=== PATIENT | female | born 1935 | race Caucasian/White ===

== ENCOUNTER 2017-08-09 08:12 | Emergency (ER) | payer MEDICARE ==
[2017-08-09 08:43] LABS: ABS Basophils 0 10^3/ul (0-0.2); ABS Eosinophils 0.2 10^3/ul (0-0.6); ABS Lymphocytes 1.2 10^3/ul (1.0-4.8); ABS Monocytes 0.5 10^3/ul (0-0.8); ABS Neutrophils 4.8 10^3/ul (1.5-7.7); ABS Nucleated RBC 0 10^3/ul; Eosinophil % 2.9 % (0-6); Hematocrit 40 % (35-47); Hemoglobin 13.2 g/dl (12.0-16.0); Lymphocyte % 17.7 % (25-47); Mean Corpuscular HGB Conc 33 g/dl (31-36); Mean Corpuscular Hemoglobin 28 pg (27-31); Mean Corpuscular Volume 85 fL (80-97); Mean Platelet Volume 8 um3 (7.4-10.4); Nucleated Red Blood Cells % 0.1; Platelet Count 213 10^3/ul (150-450); Red Blood Count 4.69 10^6/ul (4.0-5.4); Red Cell Distribution Width 14 % (10.5-15); White Blood Count 6.8 10^3/ul (3.5-10.8)
--- NOTE | 2017-08-09 08:52 | RAD ---
INDICATION: Short of breath COMPARISON: October 04, 2015 TECHNIQUE: PA and lateral dual-energy views were obtained. FINDINGS: Bones/Soft Tissues: There are no acute bony findings. Cardiomediastinal: The cardiomediastinal silhouette is normal. Lungs: There are no infiltrates. Pleura: There are no pleural effusions. Other: None IMPRESSION: NO ACTIVE DISEASE.
[2017-08-09 08:58] LABS: EGFR Non-African American 64.4 (>60)
[2017-08-09 10:02] LABS: Urine Appearance Cloudy; Urine Blood 2+ (Negative); Urine Color Yellow; Urine Ketones Negative (Negative); Urine Protein Negative (Negative); Urine Specific Gravity 1.014 (1.010-1.030); Urine Urobilinogen Negative (Negative)
[2017-08-09] MEDS ORDERED: ceFUROXime TAB(*) 250 MG PO ONE (10:21)
[2017-08-09 11:56] VITALS: BP 162/90
--- NOTE | 2017-08-10 09:30 | ED ---
Rosa Dominguez Edward, scribed for Elijah Ibrahim MD on 08/09/17 at 0815 . Shortness of Breath - HPI Summary HPI Summary: 82 y/o female MARYBETH c/o SOB since 18:00 last night. Associated sx: productive cough, rhinorrhea. PMHx anxiety. Pt is not on O2 at home. Denies fevers. Pt is on Warforin. Sx not aggravated or alleviated by anything. - History of Current Complaint Hx Obtained From: Patient Onset/Duration: Lasting Hours Timing: Constant Dyspnea At: Rest Aggrevating Factors: Nothing Alleviating Factors: Nothing Associated Signs & Symptoms: Cough (Productive) - Allergy/Home Medications Allergies/Adverse Reactions: Allergies Allergy/AdvReac Type Severity Reaction Status Date / Time No Known Allergies Allergy Verified 11/27/15 12:11 PMH/Surg Hx/FS Hx/Imm Hx Previously Healthy: No Endocrine/Hematology History: Denies: Hx Diabetes Cardiovascular History: Reports: Hx Hypercholesterolemia Denies: Hx Congestive Heart Failure, Other Cardiovascular Problems/Disorders Respiratory History: Reports: Hx Pulmonary Embolism Denies: Hx Chronic Obstructive Pulmonary Disease (COPD), Other Respiratory Problems/Disorders Sensory History: Reports: Hx Cataracts Opthamlomology History: Reports: Hx Cataracts - Family History Known Family History: Positive: None - Social History Alcohol Use: None Hx Substance Use: No Substance Use Type: Reports: None Hx Tobacco Use: No Smoking Status (MU): Never Smoked Tobacco Review of Systems Constitutional: Negative Negative: Fever Eyes: Negative ENT: Negative Cardiovascular: Negative Positive: Shortness Of Breath, Cough Gastrointestinal: Negative Genitourinary: Negative Musculoskeletal: Negative Skin: Negative Neurological: Negative Psychological: Normal All Other Systems Reviewed And Are Negative: Yes Physical Exam - Summary Physical Exam Summary: VITAL SIGNS: Reviewed. GENERAL: Patient is a well-developed and nourished female who is lying comfortable in the stretcher. Patient is not in any acute respiratory distress. Pt is comfortable on room air. HEAD AND FACE: No signs of trauma. No ecchymosis, hematomas or skull depressions. No sinus tenderness. Patient has a runny nose with clear discharge. EYES: PERRLA, EOMI x 2, No injected conjunctiva, no nystagmus. EARS: Hearing grossly intact. Ear canals and tympanic membranes are within normal limits. MOUTH: Oropharynx within normal limits. NECK: Supple, trachea is midline, no adenopathy, no JVD, no carotid bruit, no c- spine tenderness, neck with full ROM. CHEST: Symmetric, no tenderness at palpation LUNGS: Clear to auscultation bilaterally. No wheezing or crackles. CVS: Regular rate and rhythm, S1 and S2 present, no murmurs or gallops appreciated. ABDOMEN: Soft, non-tender. No signs of distention. No rebound no guarding, and no masses palpated. Bowel sounds are normal. EXTREMITIES: FROM in all major joints, no edema, no cyanosis or clubbing. NEURO: Alert and oriented x 3. No acute neurological deficits. Speech is normal and follows commands. SKIN: Dry and warm Triage Information Reviewed: Yes Vital Signs Reviewed: Yes Diagnostics - Laboratory Result Diagrams: 08/09/17 08:29 08/09/17 08:29 Lab Statement: Any lab studies that have been ordered have been reviewed, and results considered in the medical decision making process. - Radiology CXR Xray Interpretation: No Acute Changes Radiology Interpretation Completed By: Radiologist - ED PHYSICIAN REVIEWS AND AGREES - EKG 1 EKG Interpretation: SR @ [address] elevations. Normal axis. Course/Dx - Course Assessment/Plan: 82 y/o female BIBA c/o SOB since 18:00 last night. Associated sx: productive cough, rhinorrhea. PMHx anxiety. Pt is not on O2 at home. Denies fevers. Pt is on Warforin. CXR SHOWS NAD. EKG - SR @ [address] elevations. Normal axis. Test results are without significant abnormalities, UA (+) UTI. Influenza A & B negative. D-Dimer <200. In the ED course the pt was given IV fluids Cefuroxime for the UTI, since these meds do not interfere with Coumadin. The pt came c/o SOB; however the CXR shows no PNA, the pt is saturating 98% on room air and the D dimer is <200, so I have no suspicion of PE. Since the pt is feeling better, ambulating, tolerating PO, the pt will be d/c home with f/u PCP. The pt is hemodynamically stable, A&Ox3. - Diagnoses Provider Diagnoses: UTI (urinary tract infection), Dyspnea, Anxiety Discharge - Discharge Plan Condition: Stable Disposition: HOME Prescriptions: ceFUROXime TAB(*) [Ceftin TAB 250 MG(*)] 250 mg PO BID #14 tab Patient Education Materials: Urinary Tract Infection in Women (ED), Dyspnea (ED ), Anxiety (ED) Referrals: Mike Mc MD [Primary Care Provider] - 4 Days (PLEASE F/U IN 3-5 DAYS) The documentation as recorded by the Rosa brady Edward accurately reflects the service I personally performed and the decisions made by Patrice starr Walter, MD.
--- NOTE | 2017-08-11 09:05 | PN ---
Progress Note - Progress Note Date of Service: 08/09/17 Note: patient diagnosed and treated for UTI. placed on ceftin at discharge. had >100,000 of e. coli on preliminary results. will wait for final culture results to determine susceptibility. no further action required at this time.
== END 2017-08-09 11:55 | disposition home or self-care (01) ==
LOC: ED 08:12
DX: N39.0 Urinary tract infection, site not specified (principal); B96.20 Unspecified Escherichia coli [E. coli] as the cause of diseases classified elsewhere; R06.02 Shortness of breath; F41.9 Anxiety disorder, unspecified; R05 Cough; E78.00 Pure hypercholesterolemia, unspecified; Z86.711 Personal history of pulmonary embolism; Z79.01 Long term (current) use of anticoagulants
CPT/HCPCS: 36415; 71046; 80053; 81003; 81015; 82550; 82553; 83605; 83880; 84484; 85025; 85379; 86140; 87040; 87077; 87086; 87186; 87502; 93005; 99282

== ENCOUNTER 2018-10-09 14:09 | Observation (INO) | payer MEDICARE ==
[2018-10-09] MEDS ORDERED: NS 0.9% 1000 ML** 1,000 ML IV ONE (14:44)
--- NOTE | 2018-10-09 14:49 | ED ---
Lower Extremity - HPI Summary HPI Summary: This patient is a 83 year old F brought in by ambulance with a chief complaint of bilateral knee pain due to fall since 03:00. The patient rates the pain 3/10 in severity. Patient reports difficulty ambulating. Patient denies pelvic pain, cardiac pain, or head injury. The patient got up to go to the bathroom, became dizzy, and fell. She was unable to get up and waited on the ground. On the ground, she experienced CP for 2 minutes. She is usually able to ambulate with a walker, but tried to get to the bathroom without it since it was the middle of the night. She sees her doctor once a month. SHX lives alone in an apartment. No SHx EtOH use, tobacco use. RX Warfarin. Vitals in the room: HR 93 bpm, BP 176/97. - History of Current Complaint Chief Complaint: EDFall Stated Complaint: FALL PER EMS Time Seen by Provider: 10/09/18 14:25 Hx Obtained From: Patient Mechanism Of Injury: Fall From A Standing Position Onset/Duration: Hours Severity Currently: Mild Pain Intensity: 3 Pain Scale Used: 0-10 Numeric Associated Signs And Symptoms: Positive: Knee Pain Aggravating Factor(s): Standing, Ambulation - Allergies/Home Medications Allergies/Adverse Reactions: Allergies Allergy/AdvReac Type Severity Reaction Status Date / Time No Known Allergies Allergy Verified 10/09/18 14:14 Home Medications: Home Medications Warfarin Sodium 9 mg PO DAILY 10/09/18 [History Confirmed 10/09/18] PMH/Surg Hx/FS Hx/Imm Hx Endocrine/Hematology History: Denies: Hx Diabetes Cardiovascular History: Reports: Hx Hypercholesterolemia Denies: Hx Congestive Heart Failure, Other Cardiovascular Problems/Disorders Respiratory History: Reports: Hx Pulmonary Embolism Denies: Hx Chronic Obstructive Pulmonary Disease (COPD), Other Respiratory Problems/Disorders Sensory History: Reports: Hx Cataracts Opthamlomology History: Reports: Hx Cataracts - Immunization History Date of Influenza Vaccine: no Infectious Disease History: No Infectious Disease History: Denies: Traveled Outside the [place] in Last 30 Days - Family History Known Family History: Positive: Other - PE - Social History Lives: Alone Alcohol Use: None Hx Substance Use: No Substance Use Type: Reports: None Hx Tobacco Use: No Smoking Status (MU): Never Smoked Tobacco Review of Systems Cardiovascular: Negative Positive: Chest Pain - resolved Positive: Myalgia - knee pain, Decreased ROM - difficulty ambulating. Negative : Other - pelvic pain, head injury Neurological: Other - dizzy All Other Systems Reviewed And Are Negative: Yes Physical Exam - Summary Physical Exam Summary: Appearance: Well appearing, Skin: warm, dry, reflects adequate perfusion Head/face: normal Eyes: EOMI, ERIC ENT: normal Neck: supple, non-tender Respiratory: CTA, breath sounds present Cardiovascular: RRR, pulses symmetrical Abdomen: non-tender, soft Musculoskeletal: tenderness b/l knees, swelling and rom restricted b/l knees. Neuro: A&Ox3 GCS: 15 Triage Information Reviewed: Yes Vital Signs On Initial Exam: Initial Vitals Temp Pulse Resp BP Pulse Ox 99.0 F 86 22 167/99 99 10/09/18 14:10 10/09/18 14:10 10/09/18 14:10 10/09/18 14:10 10/09/18 14:10 Vital Signs Reviewed: Yes Diagnostics - Vital Signs Vital Signs Temp Pulse Resp BP Pulse Ox 10/09/18 14:24 85 18 176/97 98 10/09/18 14:17 95 30 99 10/09/18 14:10 99.0 F 86 22 167/99 99 - Laboratory Result Diagrams: 10/09/18 14:57 10/09/18 14:57 Lab Statement: Any lab studies that have been ordered have been reviewed, and results considered in the medical decision making process. - Radiology cxr Radiology Interpretation Completed By: Radiologist Summary of Radiographic Findings: No evidence for acute intrathoracic disease. ED physician has reviewed this report. Pelvic x ray Radiology Interpretation Completed By: Radiologist Summary of Radiographic Findings: No gross evidence for RIGHT hip or pelvic fracture within limits of supine AP pelvis radiograph. If there is persistent clinical concern for RIGHT hip fracture a dedicated RIGHT hip series would be suggested. ED physician has reviewed this report right knee x ray Radiology Interpretation Completed By: Radiologist Summary of Radiographic Findings: Negative for fracture. Advanced osteoarthritis. ED physician has reviewed this report. left knee x ray Radiology Interpretation Completed By: ED Physician Summary of Radiographic Findings: no fracture, pending official radiology report - CT Brain CT Interpretation Completed By: Radiologist Summary of CT Findings: Moderate involutional change and stigmata of chronic small vessel schema disease. No CT evidence for an acute intracranial process. ED physician has reviewed this report - EKG 15:49 Cardiac Rate: NL - 80 bpm EKG Rhythm: Sinus Rhythm Summary of EKG Findings: No acute changes Lower Extremity Course/Dx - Course Course Of Treatment: This patient is a 83 year old F brought in by ambulance with a chief complaint of bilateral knee pain due to fall since 03:00. The patient rates the pain 3/10 in severity. Patient reports difficulty ambulating. Patient denies pelvic pain, cardiac pain, or head injury. An EKG reveals NSR 80 bpm, no acute changes. CXR reveals, per radiologist, No evidence for acute intrathoracic disease. Brain CT reveals, per radiologist, Moderate involutional change and stigmata of chronic small vessel schema disease. No CT evidence for an acute intracranial process. Right knee x ray reveals, per radiologist, Negative for fracture. Advanced osteoarthritis. Left knee x ray reveals, per ED physician, no fracture. Pelvic x ray reveals, per radiologist, No gross evidence for RIGHT hip or pelvic fracture within limits of supine AP pelvis radiograph. If there is persistent clinical concern for RIGHT hip fracture a dedicated RIGHT hip series would be suggested. Bloodwork/UA obtained. In the ED course the patient was given IV fluids. We discussed patient care with Dr. Collins, hospitalist, and they recommended admission. - Diagnoses Differential Diagnosis/HQI/PQRI: Positive: Sprain, Other - fall/b/l knee pains/ unable to ambulate Provider Diagnoses: Fall, UTI (urinary tract infection), Bilateral knee pain, Unable to ambulate - Physician Notifications Discussed Care Of Patient With: Matheus Collins Time Discussed With Above Provider: 17:52 Instructed by Provider To: Admit As Inpatient Discharge - Sign-Out/Discharge Documenting (check all that apply): Patient Departure - admission Patient Received Moderate/Deep Sedation with Procedure: No - Discharge Plan Condition: Fair Disposition: ADMITTED TO [facility] Referrals: Mike Mc MD [Primary Care Provider] - - Billing Disposition and Condition Condition: FAIR Disposition: Admitted to [facility] - Attestation Statements Document Initiated by Scribe: Yes Documenting Scribe: Jay Garcia Provider For Whom Scribe is Documenting (Include Credential): Ej Sewell MD Scribe Attestation: Jay Dominguez, scribed for Ej Sewell MD on 10/09/18 at 1841. Scribe Documentation Reviewed: Yes Provider Attestation: The documentation as recorded by the scribe, Jay Garcia accurately reflects the service I personally performed and the decisions made by me, Ej Sewell MD Status of Scribe Document: Viewed
[2018-10-09 15:06] LABS: Hematocrit 42 % (33-41); Hemoglobin 13.6 g/dL (12.0-16.0); Mean Corpuscular HGB Conc 33 g/dL (31-36); Mean Corpuscular Hemoglobin 28 pg (27-31); Mean Corpuscular Volume 85 fL (80-97); Mean Platelet Volume 8.3 fL (7.4-10.4); Platelet Count 225 10^3/uL (150-450); Red Blood Count 4.91 10^6 /uL (3.70-4.87); Red Cell Distribution Width 14 % (10.5-15); White Blood Count 13.5 10^3/uL (3.5-10.8)
[2018-10-09 15:19] LABS: Activated Partial Thrombo Time 39.8 seconds (26.0-36.3); INR 2.76 (0.77-1.02)
[2018-10-09 15:24] LABS: Alcohol < 10 mg/dL (<10)
[2018-10-09 15:26] LABS: ALT 8 U/L (7-52); AST 21 U/L (13-39); Albumin 4.1 g/dL (3.2-5.2); Albumin/Globulin Ratio 1.6 (1-3); Alkaline Phosphatase 50 U/L (34-104); Anion Gap 9 mmol/L (2-11); Blood Urea Nitrogen 20 mg/dL (6-24); CO2 Carbon Dioxide 23 mmol/L (22-32); Calcium 9.5 mg/dL (8.6-10.3); Chloride 109 mmol/L (101-111); Creatine Kinase 215 U/L (10-223); EGFR African American 75.6 (>60); EGFR Non-African American 62.5 (>60); Globulin 2.5 g/dL (2-4); Glucose 107 mg/dL (70-100); Magnesium 1.8 mg/dL (1.9-2.7); Potassium 4.7 mmol/L (3.5-5.0); Sodium 141 mmol/L (135-145); Total Protein 6.6 g/dL (6.4-8.9)
[2018-10-09 15:30] LABS: ABS Basophils 0.1 10^3/ul (0-0.2); ABS Eosinophils 0 10^3/ul (0-0.6); ABS Lymphocytes 0.7 10^3/ul (1.0-4.8); ABS Monocytes 1.1 10^3/ul (0-0.8); ABS Neutrophils 11.6 10^3/ul (1.5-7.7); ABS Nucleated RBC 0 10^3/ul; Eosinophil % 0.1 %; Lymphocyte % 5.1 %; Nucleated Red Blood Cells % 0.1
[2018-10-09 15:38] LABS: TSH (Thyroid Stimulating Horm) 2.12 mcIU/mL (0.34-5.60)
[2018-10-09 16:56] LABS: Urine Appearance Cloudy; Urine Bacteria 2+ (Absent); Urine Bilirubin Negative (Negative); Urine Blood 2+ (Negative); Urine Color Yellow; Urine Glucose Negative (Negative); Urine Ketones 1+ (Negative); Urine Nitrite Positive (Negative); Urine Protein 1+(30 mg/dL) (Negative); Urine Red Blood Cell 1+(3-5/hpf) (Absent); Urine Specific Gravity 1.018 (1.010-1.030); Urine Squamous Epithelial Cell Present (Absent); Urine Urobilinogen Negative (Negative); Urine White Blood Cell 3+(>20/hpf) (Absent)
[2018-10-09] MEDS ORDERED: Sulfamethox/Trimethoprim DS 800/160* TAB PO ONE (17:40)
[2018-10-09] MEDS ORDERED: Acetaminophen TAB* 325 MG PO PRN (18:16)
--- NOTE | 2018-10-09 18:27 | ADMNOTE ---
Subjective Date of Service: 10/09/18 Interval History: ADMISSION HISTORY AND PHYSICAL EXAM: Allergies Allergy/AdvReac Type Severity Reaction Status Date / Time No Known Allergies Allergy Verified 10/09/18 14:14 Home Medications Medication Instructions Recorded Confirmed Type Warfarin Sodium 9 mg PO DAILY 10/09/18 10/09/18 History HPI: The patient was in her usual state of health until 3 AM when she got up to go to the BR. She fell and could not get up. She thinks she may have passed out but is not sure. Both knees and both feet hurt. She usually takes her warfarin in the AM but did not take it today. She sat in the BR for many hours before she saw there was a cord she could pull for help. She pulled the cord and the EMS came and brought her to the ED. Family History: Findings - Unremarkable Social History: Findings - Lives alone, . Never smoked. Her late smoked. No alcohol abuse. 3 children. SDM is her daughter Elysia Mckinney. Past Medical History: Findings - PE 2010, phlebitis age 37 treated with warfarin. T&A, BL cataract sx. Review of Systems - Measurements Intake and Output: Intake and Output Last 24 Hours 10/07/18 10/08/18 10/09/18 10/10/18 06:59 06:59 06:59 06:59 Weight 219 lb - Review of Systems Constitutional Symptoms: Negative: Weight Gain, Weight Loss, Weakness, Fatigue, Fever, Night Sweats, Unexplained Falls, Other Dermatology: Positive: Normal HEENT: Positive: Normal Eyes: Positive: Normal Thyroid: Positive: Normal Pulmonary: Positive: Normal Cardiology: Positive: Normal Gastroenterology: Positive: Normal Genital - Urinary: Positive: Normal Musculoskeletal: Positive: Joint Pain - see HPI Endocrinology: Positive: Normal Neurology: Positive: Normal Psychiatry: Positive: Normal Allergic/Immunologic: Negative: Hx Anaphylaxis, Hx Angioedema, Hx Environmental, Hx Seasonal, Athsma, Hx HIV, Immunocompromise, Swollen Glands LymphNodes, Other Objective Active Medications: Acetaminophen (Tylenol Tab*) 650 mg PO Q4H PRN PRN Reason: PAIN Sodium Chloride (Ns 0.9% 1000 Ml) 1,000 mls @ 100 mls/hr IV ED ONCE ONE Stop: 10/10/18 00:43 Last Admin: 10/09/18 15:15 Dose: 100 mls/hr Potassium Chloride/Dextrose (D5w 1/2 Ns Kcl 20 Meq 1000 Ml*) 1,000 mls @ 125 mls/hr IV PER RATE [facility] Ceftriaxone Sodium 1 gm/ (Sodium Chloride) 50 mls @ 200 mls/hr IVPB Q24H [facility] Nystatin (Nystatin Top Powder*) 1 applic TOPICAL TID [facility] Warfarin Sodium (Coumadin Tab(*)) 6 mg PO DAILY [facility]; Protocol Vital Signs - 8 hr 10/09/18 10/09/18 10/09/18 14:10 14:17 14:24 Temperature 99.0 F Pulse Rate 86 95 85 Respiratory 22 30 18 Rate Blood Pressure 167/99 176/97 (mmHg) O2 Sat by Pulse 99 99 98 Oximetry 10/09/18 10/09/18 10/09/18 15:00 15:55 16:00 Temperature Pulse Rate 77 87 81 Respiratory 21 28 24 Rate Blood Pressure 150/123 (mmHg) O2 Sat by Pulse 97 97 98 Oximetry 10/09/18 10/09/18 10/09/18 16:25 16:27 16:54 Temperature Pulse Rate 84 86 86 Respiratory 23 28 20 Rate Blood Pressure 168/120 165/94 165/103 (mmHg) O2 Sat by Pulse 95 97 99 Oximetry 10/09/18 17:00 Temperature Pulse Rate 93 Respiratory 24 Rate Blood Pressure (mmHg) O2 Sat by Pulse 97 Oximetry Oxygen Devices in Use Now: Nasal Cannula Appearance: Alert, partly up on ED stretche. Somewhat anxious but otherwise looks comfortable. Eyes: No Scleral Icterus Neck: NL Appearance and Movements; NL JVP, No Thyroid Enlargement, Masses Respiratory: Symmetrical Chest Expansion and Respiratory Effort, Clear to Auscultation, Clear to Percussion Cardiovascular: NL Sounds; No Murmurs; No JVD, RRR, No Edema, - Abdominal: NL Sounds; No Tenderness; No Distention, No Hepatosplenomegaly, - Extremities: No Edema, No Clubbing, Cyanosis, - - Both lower legs seem superficially tender to touch everywhere. Skin: No Nodules or Sclerosis, - - Both inguinal areas excoriated. Neurological: Alert and Oriented x 3, NL Sensation Result Diagrams: 10/09/18 14:57 10/09/18 14:57 Assess/Plan/Problems-Billing Assessment: - Patient Problems (1) Syncope Current Visit: Yes Status: Acute Code(s): R55 - SYNCOPE AND COLLAPSE SNOMED Code(s): 260400244 Comment: echo, US carotids ordered, orthostatic signs, tele. (2) UTI (urinary tract infection) Current Visit: Yes Status: Acute Comment: Start ceftr 10/09 PM, check urine C &S. (3) Hx pulmonary embolism Current Visit: Yes Status: Acute Code(s): Z86.711 - PERSONAL HISTORY OF PULMONARY EMBOLISM SNOMED Code(s): 353190662 Comment: INT 2.67 in ED. Start warfarin 5 mg daily 5 PM on 10/09, re-check INR in 2 days. Jaimee'ritika dispenses 45 6 mg warfarin tablets per month, but on repeat questioning patient firmly states she takes 1 warfarin tablet daily, NOT 1 1/2, usually has 8 or so tablets left over whenshe is due for a refill. (4) Lower extremity pain Current Visit: Yes Status: Acute Comment: Suspect soft tissure injury, some somatization from anxiety. APAP PRN ordered. PT ordered.
[2018-10-09] MEDS ORDERED: Warfarin TAB(*) 6 MG PO SCH (18:30)
[2018-10-09] MEDS ORDERED: cefTRIAXone(*) 1 GM ADVAN/BAG ONE (18:49)
[2018-10-09] MEDS ORDERED: cefTRIAXone(*) 1 GM in NS 0.9% 50 ML* 50 ML IVPB SCH (19:00)
[2018-10-09] MEDS: D5W 1/2 NS KCl 20 Meq 1000 ML* 1,000 ML IV SCH (20:40)
[2018-10-09] MEDS: Warfarin TAB(*) 5 MG PO SCH (20:41)
[2018-10-10] MEDS: Nystatin TOP POWDER* 15 GM BTL TOPICAL SCH ×4 (00:04→22:03)
[2018-10-10] MEDS: traMADol TAB* 50 MG PO PRN (06:11)
[2018-10-10] MEDS: D5W 1/2 NS KCl 20 Meq 1000 ML* 1,000 ML IV SCH ×2 (07:12→14:56)
--- NOTE | 2018-10-10 14:31 | PN ---
Subjective Date of Service: 10/10/18 Interval History: No more extremity pain. No new c/o. Family History: Findings - Unremarkable Social History: Findings - Lives alone, . Never smoked. Her late smoked. No alcohol abuse. 3 children. SDM is her daughter Elysia Mckinney. Past Medical History: Findings - PE 2010, phlebitis age 37 treated with warfarin. T&A, BL cataract sx. Objective Active Medications: Acetaminophen (Tylenol Tab*) 650 mg PO Q4H PRN PRN Reason: PAIN Last Admin: 10/10/18 04:33 Dose: 650 mg Potassium Chloride/Dextrose (D5w 1/2 Ns Kcl 20 Meq 1000 Ml*) 1,000 mls @ 125 mls/hr IV PER RATE [facility] Last Admin: 10/10/18 07:12 Dose: 125 mls/hr Ceftriaxone Sodium 1 gm/ (Sodium Chloride) 50 mls @ 200 mls/hr IVPB 1830 [facility] Nystatin (Nystatin Top Powder*) 1 applic TOPICAL TID [facility] Last Admin: 10/10/18 13:07 Dose: 1 applic Tramadol HCl (Ultram*) 50 mg PO Q6H PRN PRN Reason: PAIN Last Admin: 10/10/18 06:11 Dose: 50 mg Warfarin Sodium (Coumadin Tab(*)) 5 mg PO DAILY@1700 [facility]; Protocol Last Admin: 10/09/18 20:41 Dose: 5 mg Vital Signs - 8 hr 10/10/18 10/10/18 10/10/18 07:44 08:00 11:40 Temperature 97.3 F 98.7 F Pulse Rate 75 58 Respiratory 19 16 18 Rate Blood Pressure 130/68 128/44 (mmHg) O2 Sat by Pulse 97 99 Oximetry 10/10/18 11:41 Temperature Pulse Rate Respiratory 16 Rate Blood Pressure (mmHg) O2 Sat by Pulse Oximetry Oxygen Devices in Use Now: None Appearance: Alert, partly up in bed. In good spirits. Looks comfortable. Extremities: No Edema, No Clubbing, Cyanosis, - Skin: No Rash or Ulcers, No Nodules or Sclerosis, - Neurological: Alert and Oriented x 3, NL Sensation Result Diagrams: 10/09/18 14:57 10/09/18 14:57 Microbiology and Other Data: Microbiology 10/09/18 16:45 Urine Culture - Preliminary Urine Escherichia Coli Assess/Plan/Problems-Billing Assessment: - Patient Problems (1) Syncope Current Visit: Yes Status: Acute Code(s): R55 - SYNCOPE AND COLLAPSE SNOMED Code(s): 806904256 Comment: Echo, US carotids ordered. Orthostatic signs were normal. Continue tele. (2) UTI (urinary tract infection) Current Visit: Yes Status: Acute Comment: Start ceftr 10/09 PM, Urine growing >100,000 E. coli, sens pending. Plan on discharge on cefuroxime 500 mg bid x 5 days unless resistance seen on C&S. (3) Hx pulmonary embolism Current Visit: Yes Status: Acute Code(s): Z86.711 - PERSONAL HISTORY OF PULMONARY EMBOLISM SNOMED Code(s): 164338404 Comment: INT 2.67 in ED. Start warfarin 5 mg daily 5 PM on 10/09, re-check INR 10/11. Jaimee'ritika dispenses 45 6 mg warfarin tablets per month, but on repeat questioning patient firmly states she takes 1 warfarin tablet daily, NOT 1 1/2, usually has 8 or so tablets left over whenshe is due for a refill. (4) Lower extremity pain Current Visit: Yes Status: Acute Comment: Suspect soft tissure injury, some somatization from anxiety. PT eval showed she is likely at her baseline, no pain with walking. Status and Disposition: Plan discharge 10/11/18 2 PM. Her son Chinmay will pick her up then [phone]. Daughter Elysia [phone] Son Kareem [phone]
--- NOTE | 2018-10-10 15:00 | PN ---
Progress Note - Progress Note Date of Service: 10/10/18 Note: Time spent on discharge including exam of patient, discussion with patient, daughter Elysia, nurse, CM, review of EMR and preparation of discharge documents is 45 minutes.
[2018-10-10] MEDS: Warfarin TAB(*) 5 MG PO SCH (17:53)
[2018-10-10] MEDS ORDERED: cefTRIAXone(*) 1 GM in NS 0.9% 50 ML* 50 ML IVPB SCH (18:30)
--- NOTE | 2018-10-10 22:18 | DS ---
CC: Dr. Mc * DISCHARGE SUMMARY: DATE OF ADMISSION: DATE OF DISCHARGE: 10/11/18 HISTORY OF PRESENT ILLNESS: This 83-year-old woman presented after a fall at about 3 a.m. when she went to the bathroom. She is not clearly sure what happened. She fell down. She was in the sitting position, but could not get up. She laid there. She sat there for many hours. Eventually, she realized there was a pull cord that she could pull for help. She pulled it and the EMS brought her to the emergency room. She complained of pain in both legs. She had x-rays of both knees. There were no fracture. There was advanced osteoarthritis. She was given mild analgesics. The next morning, she felt much better. The pain was gone. She did quite well with physical therapy and was able to ambulate without any discomfort. She is very likely at her baseline. She was noted to have abnormal urinalysis on admission. She was started on ceftriaxone in the emergency room. At the time of this dictation, urine was growing out greater than 100,000 E. coli. The sensitivities are pending in our lab. This E. coli has very high likelihood of being sensitive to higher generation cephalosporins. She was sent in a prescription for cefuroxime for 5 more days of treatment after discharge. She will receive 2 doses of IV ceftriaxone. If the sensitivities show resistance to cefuroxime, a different antibiotic can be selected; however, at this time, she seems to be clinically responding well. The patient gave a very vague history of a fall. It is possible she had a syncope. She was monitored on telemetry throughout her hospital stay. Echocardiogram and ultrasound of the carotids have been ordered, but have not yet been done. These tests should be completed, although not necessarily finally interpreted before discharge. FINAL DIAGNOSES: 1. Fall. 2. Urinary tract infection. 3. Osteoarthritis. 4. History of pulmonary embolism. DISCHARGE MEDICATIONS: 1. Cefuroxime 500 mg b.i.d. for 5 days. 2. Warfarin 6 mg at 1 mg daily. CONDITION ON DISCHARGE: Improved. DISPOSITION ON DISCHARGE: Discharged to home. [id number]/[facility] #: [id number] MTDD
[2018-10-11] MEDS: D5W 1/2 NS KCl 20 Meq 1000 ML* 1,000 ML IV SCH (02:03)
[2018-10-11] MEDS: traMADol TAB* 50 MG PO PRN (04:18)
--- NOTE | 2018-10-11 04:24 | PN ---
Hospitalist Progress Note Cross coverage note. Called to evaluate patient for sudden onset of R upper arm pain and eventual substernal chest pain that awoke patient from sleep - RN noted patient at that time to have tachypnea. On my arrival, patient reports that the pain resolved as quickly as it came, without intervention. Vitals stable - afebrile, HR 70s, RR 14, BP 147/50, with SaO2 98% on RA before O2 supplemental added for comfort lungs clear (pt with upper airway sounds that resolved when asked to breathe through nose) cardiac: rrr no mgr abd soft nontender EKG NSR, no e/o ischemia Pt with notable history of PE and has therapeutic INR. Given h/o PE, therapeutic AC, and no hemodynamic compromise, no utility to re-scan. Will add troponin to morning labs, as ACS is on differential, although symptoms not typical. Will take tramadol for leg pain and continue to monitor.
[2018-10-11] MEDS: Nystatin TOP POWDER* 15 GM BTL TOPICAL SCH (09:48)
[2018-10-11] MEDS ORDERED: Perflutren Lipid Microsphere* 3 ML VIAL ONE (10:33)
[2018-10-11 11:03] VITALS: BP 138/65
--- NOTE | 2018-10-11 14:16 | ECHO ---
Patient: SHLOMO AUSTIN [facility] Rec#: [id number] : 1935 Date: 10/11/2018 Age: 83y Height: 168 cm / 66.1 in Weight: 100 kg / 220.4 lbs Sex: F BSA: 2.09 Room#: [facility] Admit Date#: 10/09/2018 Type: Inpatient Referring: Bal Collins MD Reading: Ochoa Gong MD Game Farm Helper: Rupinder Lira RDCS CC: Mike Mc MD Transthoracic Echocardiogram Indication: Syncope BP: 147/53 HR: 63 Rhythm: NSR with PACs Findings History: PE 2010, phlebitis. Technical Comments: The study is technically limited due to patient body habitus. Completed at 1115. Left Ventricle: The left ventricular chamber size is normal. Mild concentric left ventricular hypertrophy is observed. There is normal left ventricular systolic function. The estimated ejection fraction is 60-65%. There is septal flattening of the interventricular septum consistent with right ventricular volume or pressure overload. Abnormal left ventricular diastolic function is observed. Abnormal left ventricular diastolic filling is observed, consistent with impaired relaxation. Left Atrium: The left atrium is mildly dilated. Right Ventricle: Moderator Band present. The right ventricle is mildly dilated. The right ventricle wall thickness is mildly increased. The right ventricular global systolic function is mildly reduced. Right Atrium: The right atrium is mildly dilated. Aortic Valve: The aortic valve is trileaflet. The aortic valve leaflets are mildly thickened. Systolic excursion of the aortic valve cusps is reduced. There is a trace of aortic regurgitation. There is mild aortic stenosis. The mean gradient of the aortic valve is 9 mmHg. The peak instantaneous gradient of the aortic valve is 22 mmHg. The aortic valve area, by peak velocities, is calculated at 1.8 cm2. The aortic valve area, by VTI's, is calculated at 1.7 cm2. Mitral Valve: There is mitral annular calcification. The mitral valve leaflets are mildly thickened. There is mild mitral regurgitation. There is no evidence of mitral stenosis. Tricuspid Valve: The tricuspid valve leaflets are normal. There is mild tricuspid regurgitation. The right ventricular systolic pressure is estimated at 29 mmHg. There is evidence that pulmonary hypertension may be underestimated. There is no tricuspid stenosis. Pulmonic Valve: The pulmonic valve structure is not well visualized. There is a trace pulmonic regurgitation. There is no pulmonic stenosis. Pericardium: There is no significant pericardial effusion. A pericardial fat pad is visualized. Aorta: There is no dilatation of the ascending aorta. The aortic arch is not well visualized. The aortic root is normal in size. Pulmonary Artery: The main pulmonary artery is not well visualized. Venous: The inferior vena cava appears normal in size. There is less than 50% respiratory change in the inferior vena cava dimension. Contrast: Definity was used to optimize study. 2 mL of diluted Definity were utilized. Intravenous contrast was used to enhance endocardial border definition. Conclusions There is normal left ventricular systolic function. The estimated ejection fraction is 60-65%. Abnormal left ventricular diastolic function is observed. The right ventricular global systolic function is mildly reduced. The aortic valve leaflets are mildly thickened. There is mild aortic stenosis. The mean gradient of the aortic valve is 9 mmHg. There is mild mitral regurgitation. There is mild tricuspid regurgitation. There is no significant pericardial effusion. Compared to study of 05/26/11, the LV function and Valve function are the same, The previously reported Severe PUL HTN is not seen in this study Measurements Name Value Normal Range RVIDd (AP) 2D 3.7 cm (0.9 - 2.6) RVDdMajor (2D) 4.8 cm (2.2 - 4.4) RVAW (2D) 0.9 cm (0.2 - 0.5) RAd ISD 4CH 5.2 cm (3.4 - 4.9) RA (A4C)W 4.8 cm (2.9 - 4.6) IVSd (2D) 1.2 cm (0.6 - 1) LVPWd (2D) 1.2 cm (0.6 - 1) LVIDd (2D) 3.6 cm (3.6 - 5.4) LVIDs (2D) 2.5 cm - LV FS (2D) 30 % (25 - 45) Aortic Annulus 2 cm (1.4 - 2.6) Ao root diameter (2D) 3.3 cm (2.1 - 3.5) Ascending Ao 3.2 cm (2.1 - 3.4) LA dimension (AP) 2D 3.8 cm (2.3 - 3.8) LAd ISD 4CH 5.5 cm (2.9 - 5.3) LA ISD 4CH W 4.7 cm (2.5 - 4.5) Name Value Normal Range LA ESV BP (A/L) index 36 ml/m2 - Name Value Normal Range MV E-wave Vmax 0.6 m/sec - MV deceleration time 257 msec - MV A-wave Vmax 0.8 m/sec - MV E:A ratio 0.7 ratio - LV septal e' Vmax 0.06 m/sec - LV lateral e' Vmax 0.09 m/sec - LV E:e' septal ratio 10 ratio - LV E:e' lateral ratio 6.7 ratio - Name Value Normal Range AV Vmax 2.4 m/sec - AV VTI 51 cm - AV peak gradient 22 mmHg - AV mean gradient 9 mmHg - LVOT diameter 2 cm - LVOT Vmax 1.4 m/sec - LVOT VTI 27 cm - LVOT peak gradient 7 mmHg - LVOT mean gradient 3 mmHg - DOI (VTI) 0.52 ratio - KARY (continuity Vmax) 1.8 cm2 - KARY (continuity VTI) 1.7 cm2 - VANESSA Vmax 0.7 m/sec - Name Value Normal Range TR Vmax 2.3 m/sec - TR peak gradient 21 mmHg - RAP 8 mmHg - RVSP 29 mmHg - IVC diameter 1.9 cm - Name Value Normal Range PV Vmax 1 m/sec - PV peak gradient 4 mmHg -
== END 2018-10-11 15:10 | disposition home or self-care (01) ==
LOC: ED 14:09 → INTOOBSV 18:11 → MEDTELE 18:11
PROVIDERS: ADMIT Internal Medicine; ATTEND Internal Medicine
DX: N39.0 Urinary tract infection, site not specified (principal); M79.606 Pain in leg, unspecified; Z91.81 History of falling; M19.90 Unspecified osteoarthritis, unspecified site; Z86.711 Personal history of pulmonary embolism; Z79.01 Long term (current) use of anticoagulants; M25.562 Pain in left knee; M25.561 Pain in right knee; E78.00 Pure hypercholesterolemia, unspecified; R42 Dizziness and giddiness
CPT/HCPCS: 36415; 70450; 71045; 72170; 80053; 80320; 81003; 81015; 82550; 83605; 83735; 83880; 84443; 84484; 85025; 85610; 85730; 87077; 87086; 87186; 93005; 93306; 93880; 96361; 96365; 99283; A9270-GY; C8929; G0378; G0480; G8978-GP-CI; G8979-GP-CI; G8980-GP-CI; J0696

== ENCOUNTER 2019-06-07 21:42 | Emergency (ER) | payer MEDICARE ==
[2019-06-07] MEDS ORDERED: fentaNYL* 50 MCG/ML 2 ML VIAL (100 MCG VIAL) IV ONE (21:59)
[2019-06-07] MEDS ORDERED: Nitro 2% OINT* (Nitroglycerin) 1 INCH/PAK PAK TOPICAL ONE (21:59)
--- NOTE | 2019-06-07 22:05 | ED ---
HPI Chest Pain - HPI Summary HPI Summary: Pt is an 84 y/o F presenting to the ED brought in by EMS for chest pain onset about 1 hour POT LINER. She states she was on her way to the bathroom around 2044 when she started experiencing sudden onset pain behind her L knee and chest pain. She felt fine during the day, and denies any other sx including dizziness or lightheadedness. She notes recent URI. - History of Current Complaint Chief Complaint: EDChestPainROMI Time Seen by Provider: 06/07/19 21:52 Hx Obtained From: Patient Onset/Duration: Started Hours Ago, Still Present Timing: Constant, Lasting Hours Initial Severity: Severe Current Severity: Moderate Pain Intensity: 5 Pain Scale Used: 0-10 Numeric Chest Pain Location: Diffuse Chest Pain Radiates: No Aggravating Factor(s): Nothing Alleviating Factor(s): Nothing Associated Signs and Symptoms: Positive: Chest Pain, URI - recent, Other: - pain behind L knee. Negative: Dizziness, Lightheadedness - Additional Pertinent History Primary Care Physician: LARA - Allergy/Home Medications Allergies/Adverse Reactions: Allergies Allergy/AdvReac Type Severity Reaction Status Date / Time No Known Allergies Allergy Verified 10/09/18 14:14 Home Medications: Home Medications Warfarin Sodium 9 mg PO DAILY 06/07/19 [History Confirmed 06/07/19] PMH/Surg Hx/FS Hx/Imm Hx Previously Healthy: Yes Endocrine/Hematology History: Reports: Hx Anticoagulant Therapy - Coumadin Denies: Hx Diabetes Cardiovascular History: Reports: Hx Hypercholesterolemia, Hx Hypertension Denies: Hx Congestive Heart Failure, Other Cardiovascular Problems/Disorders Respiratory History: Reports: Hx Pulmonary Embolism Denies: Hx Chronic Obstructive Pulmonary Disease (COPD), Other Respiratory Problems/Disorders Sensory History: Reports: Hx Cataracts, Hx Hearing Problem Denies: Hx Contacts or Glasses, Hx Hearing Aid Opthamlomology History: Reports: Hx Cataracts Denies: Hx Contacts or Glasses - Immunization History Date of Influenza Vaccine: no Infectious Disease History: No Infectious Disease History: Denies: Traveled Outside the [place] in Last 30 Days - Family History Known Family History: Positive: Other - PE - Social History Alcohol Use: None Hx Substance Use: No Substance Use Type: Reports: None Hx Tobacco Use: No Smoking Status (MU): Never Smoked Tobacco Review of Systems Positive: Chest Pain Positive: Myalgia - pain behind L knee Neurological: Negative - dizziness, lightheadedness All Other Systems Reviewed And Are Negative: Yes Physical Exam - Summary Physical Exam Summary: Appearance: Well-appearing, Well-nourished, lying in bed comfortably Skin: Warm, dry, no obvious rash Eyes: sclera anicteric, no conjunctival pallor ENT: mucous membranes moist, pharynx appears normal Neck: Supple, nontender Respiratory: Clear to auscultation, no signs of respiratory distress Cardiovascular: Normal S1, S2. No murmurs. Normal distal pulses in tibial and radial bilaterally. Abdomen: Soft, nontender, normal active bowel sounds present Musculoskeletal: Normal, Strength/ROM Intact Neurological: A&Ox3, awake and alert, mentation is normal, speech is fluent and appropriate Psychiatric: affect is normal, does not appear anxious or depressed Triage Information Reviewed: Yes Vital Signs On Initial Exam: Initial Vitals Temp Pulse Resp BP Pulse Ox 98 F 107 20 147/114 98 06/07/19 21:51 06/07/19 21:51 06/07/19 21:51 06/07/19 21:51 06/07/19 21:51 Vital Signs Reviewed: Yes Procedures - Sedation Patient Received Moderate/Deep Sedation with Procedure: No Diagnostics - Vital Signs Vital Signs Temp Pulse Resp BP Pulse Ox 06/07/19 21:51 98 F 107 20 147/114 98 - Laboratory Result Diagrams: 06/07/19 22:16 06/07/19 22:16 Lab Statement: Any lab studies that have been ordered have been reviewed, and results considered in the medical decision making process. - Radiology CXR Radiology Interpretation Completed By: ED Physician Summary of Radiographic Findings: No acute process. Pending official radiology report. - EKG 2256 Cardiac Rate: NL - 70bpm EKG Rhythm: Sinus Rhythm ST Segment: Normal Ectopy: None Summary of EKG Findings: EKG at 2257 shows NSR at 70 BPM, P waves, QRS complex, and T waves are within normal limits, T waves and intervals are normal, no ischemic changes. This is a normal EKG. ED physician has reviewed and interpreted this EKG. Chest Pain Course/Dx - Course Course Of Treatment: Pt is an 84 y/o F presenting to the ED brought in by EMS for chest pain onset about 1 hour POT LINER. She states she was on her way to the bathroom around 2044 when she started experiencing sudden onset pain behind her L knee and chest pain. She felt fine during the day, and denies any other sx including dizziness or lightheadedness. She notes recent URI. Pt's physical exam is nml. CXR shows no acute process, pending official radiology report. EKG at 2257 shows NSR at 70 BPM, P waves, QRS complex, and T waves are within normal limits, T waves and intervals are normal, no ischemic changes. This is a normal EKG. ED physician has reviewed and interpreted this EKG. HEART score of 3. Pt's second troponin is negative. She will be sent home with dx of chest pain. She is stable and agreeable with this plan. - Diagnoses Provider Diagnoses: Chest pain Discharge ED - Sign-Out/Discharge Documenting (check all that apply): Patient Departure - Discharge Plan Condition: Stable Disposition: HOME Patient Education Materials: Chest Pain (ED) Referrals: Mike Mc MD [Primary Care Provider] - 5 Days - Billing Disposition and Condition Condition: STABLE Disposition: Home - Attestation Statements Document Initiated by Tracyibe: Yes Documenting Scribe: Adrianna Melgar Provider For Whom Malinda is Documenting (Include Credential): Jono Doshi MD. Scribe Attestation: Adrianna Dominguez scribed for Jono Doshi MD. on 06/08/19 at 0158. Scribe Documentation Reviewed: Yes Provider Attestation: The documentation as recorded by the scribe, Adrianna Melgar accurately reflects the service I personally performed and the decisions made by , Jono Doshi MD. Status of Scribe Document: Viewed
[2019-06-07 22:27] LABS: ABS Eosinophils 0.1 10^3/ul (0-0.6); ABS Lymphocytes 1.2 10^3/ul (1.0-4.8); ABS Monocytes 0.6 10^3/ul (0-0.8); ABS Neutrophils 5.1 10^3/ul (1.5-7.7); Eosinophil % 1.3 %; Hematocrit 38 % (35-47); Hemoglobin 12.8 g/dL (12.0-16.0); Lymphocyte % 16.6 %; Mean Corpuscular HGB Conc 34 g/dL (31-36); Mean Corpuscular Hemoglobin 29 pg (27-31); Mean Corpuscular Volume 86 fL (80-97); Mean Platelet Volume 8.1 fL (7.4-10.4); Nucleated Red Blood Cells % 0.1; Platelet Count 206 10^3/uL (150-450); Red Blood Count 4.41 10^6 /uL (3.70-4.87); Red Cell Distribution Width 14 % (10-15)
[2019-06-07 22:40] LABS: INR 1.77 (0.82-1.09)
[2019-06-07 23:31] LABS: Albumin 3.9 g/dL (3.2-5.2); Calcium 9.4 mg/dL (8.6-10.3); Potassium 4.2 mmol/L (3.5-5.0); Total Bilirubin 0.6 mg/dL (0.2-1.0)
[2019-06-07 23:37] LABS: Albumin/Globulin Ratio 1.7 (1-3); BUN/Creatinine Ratio 24.7 (8-20); EGFR African American 66.5 (>60); Globulin 2.3 g/dL (2-4); Total Protein 6.2 g/dL (6.4-8.9)
[2019-06-08] MEDS ORDERED: Lidocaine 2% VISCOUS* 15 ML UDC PO ONE (00:26)
[2019-06-08] MEDS ORDERED: Al Hydrox/Mg Hydrox/Simet LIQ* 30 ML UDC PO ONE (00:26)
[2019-06-08 02:03] VITALS: BP 0/0
== END 2019-06-08 01:52 | disposition home or self-care (01) ==
LOC: ED 21:42
DX: R07.9 Chest pain, unspecified (principal); E78.00 Pure hypercholesterolemia, unspecified; I10 Essential (primary) hypertension; Z86.711 Personal history of pulmonary embolism; Z79.01 Long term (current) use of anticoagulants
CPT/HCPCS: 36415; 71046; 80053; 84484; 85025; 85610; 93005; 96374; 99283; A9270-GY; J3010

== ENCOUNTER 2019-06-09 07:37 | Emergency (ER) | payer MEDICARE ==
--- NOTE | 2019-06-09 07:58 | ED ---
HPI Chest Pain - HPI Summary HPI Summary: The pt is an 84 yr old female presenting to [facility] c/o chest pain and bilateral calf pain beginning 529 this date. She states that she was seen in the ED last night for the same symptoms but refused admission to [facility]. She does know what she was doing at the time of onset and cannot recall many details regarding her symptoms. She notes that her pain was a 6/7 but is now a 3 in severity. No aggravating or alleviating factors noted. She also reports some SOB and lightheadedness but denies any nausea or vomiting. - History of Current Complaint Chief Complaint: EDChestPainROMI Time Seen by Provider: 06/09/19 07:47 Hx Obtained From: Patient Onset/Duration: Started Hours Ago, Still Present Timing: Constant, Lasting Hours Initial Severity: Moderate Current Severity: Moderate Pain Intensity: 3 Pain Scale Used: 0-10 Numeric Chest Pain Location: Diffuse Aggravating Factor(s): Nothing Alleviating Factor(s): Nothing Associated Signs and Symptoms: Positive: Chest Pain, Shortness of Breath, Calf Pain/Swelling, Other: - pos - lightheadedness. Negative: Nausea, Vomiting - Additional Pertinent History Primary Care Physician: [id number] - Allergy/Home Medications Allergies/Adverse Reactions: Allergies Allergy/AdvReac Type Severity Reaction Status Date / Time No Known Allergies Allergy Verified 10/09/18 14:14 PMH/Surg Hx/FS Hx/Imm Hx Endocrine/Hematology History: Reports: Hx Anticoagulant Therapy - Coumadin Denies: Hx Diabetes Cardiovascular History: Reports: Hx Hypercholesterolemia, Hx Hypertension Denies: Hx Congestive Heart Failure, Other Cardiovascular Problems/Disorders Respiratory History: Reports: Hx Pulmonary Embolism Denies: Hx Chronic Obstructive Pulmonary Disease (COPD), Other Respiratory Problems/Disorders Sensory History: Reports: Hx Cataracts, Hx Hearing Problem Denies: Hx Contacts or Glasses, Hx Hearing Aid Opthamlomology History: Reports: Hx Cataracts Denies: Hx Contacts or Glasses - Surgical History Surgical History: None Surgery Procedure, Year, and Place: none - Immunization History Date of Influenza Vaccine: no Infectious Disease History: No Infectious Disease History: Denies: Traveled Outside the [place] in Last 30 Days - Family History Known Family History: Positive: Other - PE - Social History Alcohol Use: None Hx Substance Use: No Substance Use Type: Reports: None Hx Tobacco Use: No Smoking Status (MU): Never Smoked Tobacco Review of Systems Positive: Chest Pain Positive: Shortness Of Breath Negative: Vomiting, Nausea Musculoskeletal: Other - pos - bilateral calf pain Neurological: Other - pos - lightheadedness All Other Systems Reviewed And Are Negative: Yes Physical Exam - Summary Physical Exam Summary: VITAL SIGNS: Reviewed. GENERAL: Patient is an elderly, obese female who is lying uncomfortably in the stretcher. Patient is not in any acute respiratory distress. HEAD AND FACE: No signs of trauma. No ecchymosis, hematomas or skull depressions. No sinus tenderness. EYES: PERRLA, EOMI x 2, No injected conjunctiva, no nystagmus. EARS: Hearing grossly intact. Ear canals and tympanic membranes are within normal limits. MOUTH: Oropharynx within normal limits. NECK: Supple, trachea is midline, no adenopathy, no JVD, no carotid bruit, no c- spine tenderness, neck with full ROM. CHEST: Symmetric, no tenderness at palpation. LUNGS: Clear to auscultation bilaterally. No wheezing or crackles. CVS: Regular rate and rhythm, S1 and S2 present, no murmurs or gallops appreciated. ABDOMEN: Soft, non-tender. No signs of distention. No rebound, no guarding, and no masses palpated. Bowel sounds are normal. EXTREMITIES: FROM in all major joints, no edema, no cyanosis or clubbing. Bilateral calf pain. NEURO: Alert and oriented x 3. No acute neurological deficits. Speech is normal and follows commands. SKIN: Dry and warm. Triage Information Reviewed: Yes Vital Signs On Initial Exam: Initial Vitals Temp Pulse Resp BP Pulse Ox 98.6 F 68 16 141/87 99 06/09/19 07:37 06/09/19 07:37 06/09/19 07:37 06/09/19 07:37 06/09/19 07:37 Vital Signs Reviewed: Yes Procedures - Sedation Patient Received Moderate/Deep Sedation with Procedure: No Diagnostics - Vital Signs Vital Signs Temp Pulse Resp BP Pulse Ox 06/09/19 07:37 98.6 F 68 16 141/87 99 - Laboratory Result Diagrams: 06/09/19 08:10 06/09/19 08:10 Lab Statement: Any lab studies that have been ordered have been reviewed, and results considered in the medical decision making process. - Radiology CXR Radiology Interpretation Completed By: ED Physician Summary of Radiographic Findings: Impression: No active cardiopulmonary disease noted. ED Physician has reviewed this report. - EKG 0743 Cardiac Rate: NL EKG Rhythm: Sinus Rhythm - 69 bpm Summary of EKG Findings: EKG at 0743 reveals NSR @ 69 bpm. Q wave inversion in 3. No ST elevations. Chest Pain Course/Dx - Course Assessment/Plan: This patient is an 84-year-old female who presents to the emergency department with a chief complaint of having chest pain similar to a previous chest pain. Patients past medical history significant for: Syncope. Pulmonary embolism. UTI. Constipation. CBC without a significant abnormality. CMP without any significant abnormality except for BUN of 25. Chest x-ray impression: No active Pulmonary Disease. The Patient Doesnt Want to Wait for Any Other Testings. The Patient Was Signing AGAINST MEDICAL ADVICE. I extensively discussed with the patient the benefits and risk of leaving AMA. I also discussed the alternatives to leaving AMA, however, the patient still insists to leave the hospital AMA. The patient is clinically sober, free from distracting injury, appears to have intact insight and judgment and reason and in my opinion has the capacity to make decisions. Patient has full capacity and is cognitively intact. The patient presents with chest and calf pain, I have explained that I am concerned with these symptoms and may represent ACS or PE. The patient verbalizes understanding of my concerns. I have also explained the results of the labs and even though they are (normal or abnormal). The primary nurse and the charge nurse also strongly recommended that the patient should not leave AMA. Patient understands the risk of leaving AMA, which includes but is not restricted to . Patient signed the AMA form. Patient was also advised to return to ED if he changes his mind or if the symptoms worsen or other symptoms appear. Patient understands and agrees. Again, I discussed all the findings and test results with the patient. Patient was instructed to return to the emergency room immediately if any of the symptoms return or worsens. Plan of care was discussed with the patient and understands and agrees. All questions were answered at patient satisfaction. There were no further complaints or concerns. Patient signed AMA and he was discharged AMA. - Chest Pain Differential Diagnosis/HQI/PQRI: Acute OH, ACS, Angina, CHF, Chest Wall, GI Disease, Lower Respiratory Infection, Pulmonary Edema - Diagnoses Provider Diagnoses: Chest pain Discharge ED - Sign-Out/Discharge Documenting (check all that apply): Patient Departure - discharge - Discharge Plan Condition: Stable Disposition: HOME Patient Education Materials: Chest Pain (ED) Referrals: Mike Mc MD [Primary Care Provider] - 3 Days - Billing Disposition and Condition Condition: STABLE Disposition: Home - Attestation Statements Document Initiated by Scribe: Yes Documenting Scribe: Jordy Fagan Provider For Whom Scribe is Documenting (Include Credential): Elijah Ibrahim MD Scribe Attestation: Jordy Dominguez, scribed for Elijah Ibrahim MD on 06/09/19 at 1853. Scribe Documentation Reviewed: Yes Provider Attestation: The documentation as recorded by the Jordy brady accurately reflects the service I personally performed and the decisions made by , Elijah Ibrahim MD Status of Scribe Document: Viewed
[2019-06-09 08:21] LABS: ABS Basophils 0.1 10^3/ul (0-0.2); ABS Eosinophils 0.1 10^3/ul (0-0.6); ABS Monocytes 0.5 10^3/ul (0-0.8); ABS Neutrophils 4.3 10^3/ul (1.5-7.7); Eosinophil % 1.6 %; Hematocrit 38 % (35-47); Hemoglobin 12.5 g/dL (12.0-16.0); Lymphocyte % 16.2 %; Mean Corpuscular HGB Conc 33 g/dL (31-36); Mean Corpuscular Hemoglobin 29 pg (27-31); Mean Corpuscular Volume 86 fL (80-97); Mean Platelet Volume 8.4 fL (7.4-10.4); Platelet Count 187 10^3/uL (150-450); Red Cell Distribution Width 14 % (10-15); White Blood Count 5.9 10^3/uL (3.5-10.8)
[2019-06-09 08:28] LABS: Activated Partial Thrombo Time 37.4 seconds (26.0-38.0); INR 2.06 (0.82-1.09)
[2019-06-09 08:36] LABS: Albumin 4.1 g/dL (3.2-5.2); Albumin/Globulin Ratio 1.8 (1-3); BUN/Creatinine Ratio 28.4 (8-20); Calcium 9.5 mg/dL (8.6-10.3); EGFR African American 74.4 (>60); EGFR Non-African American 61.5 (>60); Globulin 2.3 g/dL (2-4); Potassium 3.8 mmol/L (3.5-5.0); Total Bilirubin 0.7 mg/dL (0.2-1.0); Total Protein 6.4 g/dL (6.4-8.9)
[2019-06-09 08:42] LABS: CKMB ng/mL 1.8 ng/mL (0.6-6.3)
[2019-06-09 09:16] VITALS: BP 127/59
[2019-06-09 09:26] LABS: TSH (Thyroid Stimulating Horm) 2.04 mcIU/mL (0.34-5.60)
== END 2019-06-09 09:56 | disposition home or self-care (01) ==
LOC: ED 07:37
DX: R07.9 Chest pain, unspecified (principal); E78.00 Pure hypercholesterolemia, unspecified; I10 Essential (primary) hypertension; Z86.711 Personal history of pulmonary embolism; Z79.01 Long term (current) use of anticoagulants
CPT/HCPCS: 36415; 71045; 80053; 82550; 82553; 83605; 83735; 83880; 84443; 84484; 85025; 85610; 85730; 93005; 99283

== ENCOUNTER 2020-10-17 16:34 | Inpatient (IN) ==
[2020-10-17 17:53] LABS: ABS Basophils 0.1 10^3/ul (0-0.2); ABS Eosinophils 0.1 10^3/ul (0-0.6); ABS Lymphocytes 0.9 10^3/ul (1.0-4.8); ABS Monocytes 0.6 10^3/ul (0-0.8); ABS Neutrophils 5.4 10^3/ul (1.5-7.7); Eosinophil % 1.7 %; Hematocrit 37 % (35-47); Hemoglobin 12.3 g/dL (12.0-16.0); Lymphocyte % 12.7 %; Mean Corpuscular HGB Conc 33 g/dL (31-36); Mean Corpuscular Hemoglobin 28 pg (27-31); Mean Corpuscular Volume 84 fL (80-97); Mean Platelet Volume 8.5 fL (7.4-10.4); Platelet Count 213 10^3/uL (150-450); Red Blood Count 4.37 10^6 /uL (3.70-4.87); Red Cell Distribution Width 14 % (10-15); White Blood Count 7.1 10^3/uL (3.5-10.8)
[2020-10-17 17:59] LABS: INR 2.55 (0.82-1.09)
[2020-10-17 18:10] LABS: ALT 5 U/L (7-52); AST 12 U/L (13-39); Albumin 3.9 g/dL (3.2-5.2); Albumin/Globulin Ratio 1.6 (1-3); Alkaline Phosphatase 44 U/L (34-104); BUN/Creatinine Ratio 27.6 (8-20); Blood Urea Nitrogen 27 mg/dL (6-24); CO2 Carbon Dioxide 23 mmol/L (22-32); Calcium 9.4 mg/dL (8.6-10.3); EGFR African American 65.6 (>60); EGFR Non-African American 54.2 (>60); Globulin 2.5 g/dL (2-4); Glucose 101 mg/dL (70-100); Magnesium 1.8 mg/dL (1.9-2.7); Sodium 142 mmol/L (135-145); Total Protein 6.4 g/dL (6.4-8.9)
[2020-10-17 18:12] LABS: Alcohol, S < 10 mg/dL (<10)
[2020-10-17 18:14] LABS: Anion Gap 6 mmol/L (2-11); Chloride 113 mmol/L (101-111)
[2020-10-17 19:18] LABS: Urine Appearance Cloudy; Urine Bilirubin Negative (Negative); Urine Blood 1+ (Negative); Urine Color Amber; Urine Glucose Negative (Negative); Urine Ketones Negative (Negative); Urine Nitrite Negative (Negative); Urine Protein Negative (Negative); Urine Specific Gravity 1.018 (1.002-1.030); Urine Urobilinogen Negative (Negative)
[2020-10-17 19:20] LABS: Urine Bacteria 1+ (Absent); Urine Red Blood Cell 2+(6-10/hpf) (Absent); Urine Squamous Epithelial Cell Present (Absent); Urine White Blood Cell 1+(6-10/hpf) (Absent)
[2020-10-17] MEDS ORDERED: cefTRIAXone 1 gm/50 mL NS BAG 1 GM/50 ML BAG IV ONE (19:43)
[2020-10-18 06:06] LABS: INR 2.26 (0.82-1.09)
[2020-10-18] MEDS ORDERED: Cyanocobalamin INJ 1,000 MCG/ML VIAL 1 ML VIAL IM ONE (08:00)
[2020-10-18] MEDS: Warfarin DAILY REMINDER **NOTE FOLLOW UP SCH (19:11)
[2020-10-18] MEDS: cefTRIAXone 1 gm/50 mL NS BAG 1 GM/50 ML BAG IVPB SCH (20:11)
[2020-10-19 06:23] LABS: INR 1.91 (0.82-1.09)
[2020-10-19] MEDS: Warfarin DAILY REMINDER **NOTE FOLLOW UP SCH (18:20)
[2020-10-19] MEDS: cefTRIAXone 1 gm/50 mL NS BAG 1 GM/50 ML BAG IVPB SCH (20:16)
[2020-10-20] MEDS ORDERED: Lorazepam PYXIS KEY PRN (00:54)
[2020-10-20] MEDS ORDERED: LORazepam 2 mg VIAL 1 ml IV PUSH ONE (00:54)
[2020-10-20 08:17] LABS: INR 1.89 (0.82-1.09)
[2020-10-20] MEDS: Enoxaparin 100 MG/ML SYR SUBCUT SCH ×2 (11:15→23:28)
[2020-10-20] MEDS: Warfarin DAILY REMINDER **NOTE FOLLOW UP SCH (17:20)
[2020-10-20] MEDS: cefTRIAXone 1 gm/50 mL NS BAG 1 GM/50 ML BAG IVPB SCH (20:00)
[2020-10-21 12:48] LABS: INR 2.37 (0.82-1.09)
[2020-10-21] MEDS: Enoxaparin 100 MG/ML SYR SUBCUT SCH (13:06)
[2020-10-21] MEDS: Warfarin DAILY REMINDER **NOTE FOLLOW UP SCH (17:35)
[2020-10-21] MEDS: cefTRIAXone 1 gm/50 mL NS BAG 1 GM/50 ML BAG IVPB SCH (19:41)
[2020-10-22 10:18] VITALS: BP 119/69
== END 2020-10-22 14:35 | DRG 690 ==
LOC: MED 16:34 → ED 16:34 → MED 23:58
PROVIDERS: ADMIT Internal Medicine; ATTEND Internal Medicine

== ENCOUNTER 2022-02-17 16:51 | Inpatient (IN) ==
[2022-02-17 17:35] LABS: ABS Eosinophils 0.1 10^3/ul (0-0.6); ABS Lymphocytes 0.9 10^3/ul (1.0-4.8); ABS Monocytes 1.3 10^3/ul (0-0.8); ABS Neutrophils 9.4 10^3/ul (1.5-7.7); Eosinophil % 0.9 %; Hematocrit 35 % (35-47); Lymphocyte % 7.5 %; Mean Corpuscular HGB Conc 32 g/dL (31-36); Mean Corpuscular Hemoglobin 27 pg (27-31); Mean Corpuscular Volume 84 fL (80-97); Mean Platelet Volume 8.8 fL (7.4-10.4); Nucleated Red Blood Cells % 0.1; Platelet Count 198 10^3/uL (150-450); Red Blood Count 4.15 10^6 /uL (3.70-4.87); Red Cell Distribution Width 15 % (10-15); White Blood Count 11.7 10^3/uL (3.5-10.8)
[2022-02-17] MEDS ORDERED: Cefepime 2 GM in Dextrose 2 GM/50 ML BAG IV ONE ×2 (17:45→18:35)
[2022-02-17] MEDS ORDERED: Azithromycin 500 mg/250 ml NS 500 MG/250 ML BAG IVPB ONE ×2 (17:45→18:35)
[2022-02-17 18:10] LABS: Albumin 3.6 g/dL (3.2-5.2); Albumin/Globulin Ratio 1.5 (1-3); Globulin 2.4 g/dL (2-4); Total Bilirubin 1.1 mg/dL (0.2-1.0); eGFR CKD-EPI 73.7 (>60)
[2022-02-17] MEDS ORDERED: Lorazepam PYXIS KEY PRN (19:39)
[2022-02-17] MEDS ORDERED: LORazepam 2 mg VIAL 1 ml IV PUSH ONE (19:39)
[2022-02-17 21:08] LABS: Direct Bilirubin 0.3 mg/dL (0.03-0.18); Indirect Bilirubin 0.8 mg/dL (0.3-1.0); Magnesium 1.9 mg/dL (1.9-2.7)
[2022-02-17] MEDS ORDERED: Magnesium Sulfate 2 gm BAG 2 GM/50 ML BAG IVPB ONE (21:18)
[2022-02-17] MEDS ORDERED: Magnesium Hydroxide LIQ 30 ML UDC PO PRN (21:33)
[2022-02-18 02:46] LABS: C Reactive Protein 164.08 mg/L (<8.01)
[2022-02-18 05:50] LABS: ABS Lymphocytes 0.8 10^3/ul (1.0-4.8); ABS Monocytes 1.4 10^3/ul (0-0.8); ABS Neutrophils 8.2 10^3/ul (1.5-7.7); Eosinophil % 0.5 %; Hematocrit 31 % (35-47); Hemoglobin 10.7 g/dL (12.0-16.0); Mean Corpuscular HGB Conc 34 g/dL (31-36); Mean Corpuscular Hemoglobin 29 pg (27-31); Mean Corpuscular Volume 84 fL (80-97); Mean Platelet Volume 9.2 fL (7.4-10.4); Platelet Count 179 10^3/uL (150-450); Red Blood Count 3.71 10^6 /uL (3.70-4.87); Red Cell Distribution Width 15 % (10-15); White Blood Count 10.5 10^3/uL (3.5-10.8)
[2022-02-18 06:13] LABS: Calcium 8.8 mg/dL (8.6-10.3); Potassium 3.8 mmol/L (3.5-5.0); eGFR CKD-EPI 78.5 (>60)
[2022-02-18 09:31] LABS: Urine Appearance Clear; Urine Color Yellow
[2022-02-18 09:32] LABS: Urine Bilirubin Negative (Negative); Urine Blood 1+ (Small) (Negative); Urine Glucose Negative (Negative); Urine Ketones Negative (Negative); Urine Nitrite Negative (Negative); Urine Protein Trace (Negative); Urine Specific Gravity 1.025 (1.005-1.030); Urine Urobilinogen 0.2 (Negative) (Negative)
[2022-02-18] MEDS: cefTRIAXone 1 gm/50 mL D5W 1 GM/50 ML BAG IV SCH (09:45)
[2022-02-18 09:50] LABS: Urine Amorphous Crystals Present (Absent); Urine Bacteria 1+ (Absent); Urine Red Blood Cell 3+(>10/hpf) (Absent); Urine Squamous Epithelial Cell Present (Absent); Urine White Blood Cell 2+(11-20/hpf) (Absent)
[2022-02-19 06:10] LABS: ABS Eosinophils 0.1 10^3/ul (0-0.6); ABS Lymphocytes 0.7 10^3/ul (1.0-4.8); ABS Monocytes 1.1 10^3/ul (0-0.8); ABS Neutrophils 5.7 10^3/ul (1.5-7.7); Eosinophil % 1.6 %; Hematocrit 31 % (35-47); Hemoglobin 10.6 g/dL (12.0-16.0); Lymphocyte % 9.4 %; Mean Corpuscular HGB Conc 35 g/dL (31-36); Mean Corpuscular Hemoglobin 29 pg (27-31); Mean Corpuscular Volume 84 fL (80-97); Platelet Count 188 10^3/uL (150-450); Red Blood Count 3.64 10^6 /uL (3.70-4.87); Red Cell Distribution Width 15 % (10-15); White Blood Count 7.6 10^3/uL (3.5-10.8)
[2022-02-19 06:35] LABS: Calcium 8.9 mg/dL (8.6-10.3); Magnesium 1.9 mg/dL (1.9-2.7); Potassium 3.8 mmol/L (3.5-5.0); eGFR CKD-EPI 83.8 (>60)
[2022-02-19] MEDS ORDERED: Magnesium Sulfate IV 1GM/100ML 1 GM/100 ML BAG IV ONE (07:35)
[2022-02-19] MEDS ORDERED: Potassium Chlor 20 meq TAB.ER PO ONE (07:36)
[2022-02-19] MEDS: cefTRIAXone 1 gm/50 mL D5W 1 GM/50 ML BAG IV SCH (10:41)
[2022-02-19] MEDS ORDERED: NS 0.9% 500 ml BAG 500 ML IV ONE (18:26)
[2022-02-20 07:12] LABS: Calcium 8.9 mg/dL (8.6-10.3); eGFR CKD-EPI 85.5 (>60)
[2022-02-20] MEDS: cefTRIAXone 1 gm/50 mL D5W 1 GM/50 ML BAG IV SCH (09:27)
[2022-02-20 10:24] LABS: C Reactive Protein 113.45 mg/L (<8.01)
[2022-02-20 11:29] LABS: Rapid COVID-19 Molecular Undetected (Undetected)
[2022-02-20] MEDS ORDERED: Haloperidol 5 mg/ml SDV IV/IM 5 MG/ML AMP IV SLOW PU ONE (20:59)
[2022-02-21] MEDS: cefTRIAXone 1 gm/50 mL D5W 1 GM/50 ML BAG IV SCH (08:57)
[2022-02-21 11:17] VITALS: BP 93/51
== END 2022-02-21 14:48 | DRG 193 ==
LOC: EDHOLD 16:51 → ED 16:51 → SUATTDRO 20:39 → MED 02-18 00:04
PROVIDERS: ADMIT Internal Medicine; ATTEND Internal Medicine

== ENCOUNTER 2024-02-23 14:15 | Observation (INO) ==
[2024-02-23] MEDS: Morphine 4 MG/ML VIAL (1 ml) IV ONE (15:49)
[2024-02-23 15:59] LABS: ABS Eosinophils 0.1 10^3/uL (0.0-0.5); ABS Lymphocytes 0.7 10^3/uL (1.0-4.8); ABS Monocytes 0.9 10^3/uL (0.0-0.9); ABS Neutrophils 8.3 10^3/uL (1.5-7.6); ABS Nucleated RBC 0.01 10^3/ul; Hematocrit 38.5 % (35-45); Hemoglobin 12.6 g/dL (11.5-14.3); Mean Corpuscular Hemoglobin 28.4 pg (27-33); Mean Corpuscular Hgb Conc 32.8 g/dL (31-36); Mean Corpuscular Volume 86.8 fL (80-97); Mean Platelet Volume 8.8 fL (7.5-11.2); Nucleated Red Blood Cells % 0.1 %/100WBC (0.0-0.8); Platelet Count 134 10^3/uL (150-450); Red Blood Count 4.44 10^6/uL (3.63-4.92); Red Cell Distribution Width 14.4 % (12-17); White Blood Count 10.1 10^3/uL (3.8-11.8)
[2024-02-23 16:07] LABS: Activated Partial Thrombo Time 23.7 seconds (26.0-38.0); INR 1.14 (0.83-1.13)
[2024-02-23 16:23] LABS: Albumin 3.8 g/dL (3.2-5.2); Albumin/Globulin Ratio 1.5 (1-3); Creatinine, Serum 0.77 mg/dL (0.51-0.95); Globulin 2.5 g/dL (2-4); Potassium 4.1 mmol/L (3.5-5.0); Total Bilirubin 1.3 mg/dL (0.2-1.0); Total Protein 6.3 g/dL (6.4-8.9); eGFR CKD-EPI 75.1 (>60)
[2024-02-23] MEDS: Morphine 4 MG/ML VIAL (1 ml) IV PRN (17:16)
[2024-02-24] MEDS ORDERED: Dextrose 50% Syringe 50 ml 25 GM/50 ML SYRINGE IV PUSH PRN (03:09)
[2024-02-24] MEDS: Senna TAB 8.6 mg TAB PO SCH (04:44)
[2024-02-24] MEDS: HYDROmorphone 0.5 MG/0.5 ML SYRINGE IV PRN (05:49)
[2024-02-24 06:49] LABS: ABS Eosinophils 0.3 10^3/uL (0.0-0.5); ABS Lymphocytes 0.7 10^3/uL (1.0-4.8); ABS Neutrophils 5.9 10^3/uL (1.5-7.6); ABS Nucleated RBC 0.01 10^3/ul; Eosinophil % 3.5 %; Hematocrit 35.5 % (35-45); Hemoglobin 11.8 g/dL (11.5-14.3); Lymphocyte % 9.3 %; Mean Corpuscular Hemoglobin 28.9 pg (27-33); Mean Corpuscular Hgb Conc 33.3 g/dL (31-36); Mean Corpuscular Volume 86.7 fL (80-97); Mean Platelet Volume 8.8 fL (7.5-11.2); Nucleated Red Blood Cells % 0.1 %/100WBC (0.0-0.8); Platelet Count 136 10^3/uL (150-450); Red Blood Count 4.09 10^6/uL (3.63-4.92); Red Cell Distribution Width 14.3 % (12-17); White Blood Count 7.9 10^3/uL (3.8-11.8)
[2024-02-24] MEDS ORDERED: Sulfur Hexaflouride MICROSPHR 25 MG VIAL ONE (09:16)
[2024-02-24] MEDS: Sulfur Hexaflouride MICROSPHR 25 MG VIAL IV ONE (09:19)
[2024-02-24 10:16] LABS: Albumin 3.4 g/dL (3.2-5.2); Albumin/Globulin Ratio 1.5 (1-3); Calcium 8.9 mg/dL (8.6-10.3); Creatinine, Serum 0.84 mg/dL (0.51-0.95); Globulin 2.2 g/dL (2-4); Potassium 4.1 mmol/L (3.5-5.0); Total Bilirubin 1.2 mg/dL (0.2-1.0); Total Protein 5.6 g/dL (6.4-8.9); eGFR CKD-EPI 67.6 (>60)
[2024-02-24 13:17] LABS: Urine Appearance Turbid; Urine Bilirubin Negative (Negative); Urine Blood 3+ (Negative); Urine Color Yellow; Urine Glucose Negative (Negative); Urine Ketones 1+ (Negative); Urine Nitrite Negative (Negative); Urine Protein 1+ (>=30 mg/dL) (Negative); Urine Specific Gravity 1.023 (1.002-1.030); Urine Urobilinogen 1+ (Negative); Urine pH 5.5 (5.0-8.0)
[2024-02-24 13:27] LABS: Urine Bacteria 3+ /HPF (Absent); Urine Red Blood Cell 3+(>10/hpf) /HPF (0-Trace); Urine Squamous Epithelial Cell Present /HPF (Absent); Urine White Blood Cell 3+(>20/hpf) /HPF (0-Trace)
[2024-02-24] MEDS: Enoxaparin 40 MG/0.4 ML SYR SUBCUT SCH (17:43)
[2024-02-24] MEDS: OLANZapine 5 mg TAB *ODT PO SCH (21:40)
[2024-02-25] MEDS ORDERED: HYDROmorphone 0.5 MG/0.5 ML SYRINGE IV PRN (00:52)
[2024-02-25] MEDS: HYDROmorphone 1 MG/1 ML SYRINGE IV SLOW PU PRN (01:11)
[2024-02-25 08:26] LABS: Calcium 8.9 mg/dL (8.6-10.3); Creatinine, Serum 0.81 mg/dL (0.51-0.95); Potassium 4.1 mmol/L (3.5-5.0); eGFR CKD-EPI 70.7 (>60)
[2024-02-25 08:31] LABS: Hematocrit 36.8 % (35-45); Hemoglobin 11.8 g/dL (11.5-14.3); Mean Corpuscular Hemoglobin 28.5 pg (27-33); Mean Corpuscular Hgb Conc 31.9 g/dL (31-36); Mean Corpuscular Volume 89.2 fL (80-97); Mean Platelet Volume 8.4 fL (7.5-11.2); Platelet Count 140 10^3/uL (150-450); Red Blood Count 4.13 10^6/uL (3.63-4.92); Red Cell Distribution Width 14.6 % (12-17); White Blood Count 6.4 10^3/uL (3.8-11.8)
[2024-02-25 08:56] VITALS: BP 127/69
== END 2024-02-25 13:30 ==
LOC: ED 14:15 → EDHOLD 14:15 → SSU 02-24 07:11
PROVIDERS: ADMIT Internal Medicine; ATTEND Internal Medicine